=== PATIENT | male | born 1990 | race Caucasian/White ===

== ENCOUNTER → 2022-10-18 08:17 | Outpatient (BNVA) | payer BC, SELFPAY | PROVIDERS: PCP Internal Medicine; Visit Provider Psychiatry & Neurology Neurology | DX: Z13.89 Encounter for screening for other disorder (principal) ==

== ENCOUNTER → 2023-01-24 07:21 | Outpatient (BNVA) | payer BC, SELFPAY | PROVIDERS: PCP Internal Medicine; Visit Provider Psychiatry & Neurology Neurology | DX: R20.2 Paresthesia of skin (principal); M54.2 Cervicalgia ==

== ENCOUNTER 2023-07-31 07:37 | Outpatient (AMB) | payer BC, SELFPAY ==
--- NOTE | 2023-07-31 07:41 | MHC.OFFVIS ---
Intake Vital Signs 07/31/23 07:46 Weight 205 lb BP 110/86 Blood Pressure Location Lt brachial Position Sitting Pulse 79 Pulse Source Pulse Oximeter Pulse Oximetry (%) 97 Oxygen Delivery Method Room Air Intake Visit Reasons: 6m f/u dysesthesia - Confirmed Intake Note: F/u dysesthesia [employer] Required: No Allergies Seasonal Allergies Allergy (Intermediate, Verified 07/31/23 07:42) Sneezing Medication List - Last Reconciled 07/31/23 by Destiny Adhikari MD citalopram 10 mg PO DAILY cyclobenzaprine 5 mg PO .PRN elderberry fruit mg PO epinephrine IM DIRECTED lactobacillus combination no.9 (Adult 50 Plus Probiotic) PO DAILY magnesium oxide 400 mg PO BEDTIME omeprazole 20 mg PO QAM syringe with needle (BD Tuberculin Syringe) As directed HPI HPI Comments History of Present Illness Details 33y/o male comes for follow up of his parasthesias. He had right shoulder surgery in March 2023, Pec minor release, was found to have scar tissues around the brachial plexus. He still has shoulder blade pain but managaeble. He reports feeling better with cyclobenzaprine 5mg qhs as needed , citalopram 10mg qd . Stretching helps. He still has occasional tightness in left trapezius. He still goes to his chiropractor q 2-4 weeks . Headaches have resolved. [facility] Medical History Generalized headaches Concussion Anxiety Cervicalgia Surgical History H/O shoulder surgery History of tonsillectomy H/O hernia repair Family History Father Skin cancer Carotid sinus syndrome Degenerative disc disease at L5-S1 level Mother Hypothyroid Social History Alcohol intake: current Patient Tobacco Use Status: Former Tobacco user Tobacco use type: Smokeless Tobacco Use of substances other than those prescribed or required for medical reasons: No Physical Exam Vital Signs: Last Vital Signs Pulse 79 07/31/23 07:46 BP 110/86 07/31/23 07:46 Pulse Ox 97 07/31/23 07:46 Oxygen Delivery Method Room Air 07/31/23 07:46 Const General: cooperative, healthy appearing, comfortable and no acute distress Nutritional Appearance: average body habitus Orientation/consciousness: patient oriented x3 Eyes Pupils: Equal, round and reactive pupils present Neck Other: tightness Neuro General: patient oriented x3, gait normal, tone normal, moves all extremities and no focal motor deficits Cranial nerves: Yes Facial sensation intact/muscles of mastication intact, Yes Equal, round and reactive pupils present, Yes Bilaterally intact EOM present, Yes Nystagmus not present, Yes Normal facial strength present, Yes Midline tongue present, Yes Symmetric palate elevation present and Yes Ability to bilaterally elevate shoulders present Cognition (Neuro): normal cognition Gait exam (Neuro): Normal gait present Motor exam (neuro): 5/5 motor strength present throughout and Normal motor muscle tone present throughout Coordination: [id number] test normal and rapid alternating movements of the distal upper extremity normal Assessment & Plan Assessment & Plan (1) Cervicalgia: Code(s): M54.2 - Cervicalgia (2) Paresthesias: Comment: likely related scar tissue around his brachial plexus Code(s): R20.2 - Paresthesia of skin (3) Anxiety: Code(s): F41.9 - Anxiety disorder, unspecified Plan Continue cyclobenzaprine 5mg qhs ( patient is taking PRN now) Continue chiropractor adjustment Continue citalopram 10mg qd for anxiety, continue counseling sessions. Continue Magnesium 400mg qhs . Medications: New cyclobenzaprine takes as needed 5 mg PO .PRN 30 tabs 6RF Refilled citalopram 10 mg PO DAILY 30 tabs 6RF magnesium oxide 400 mg PO BEDTIME 30 tabs 6RF Coding Level of Care Code Est Pt Level 4 (65524) Diagnoses Cervicalgia M54.2 Paresthesias R20.2 Anxiety F41.9
[2023-07-31 07:46] VITALS: BP 110/86; PULSE 79; O2SAT 97
== END 2023-07-31 08:43 | disposition home or self-care (01) ==
PROVIDERS: Visit Provider Psychiatry & Neurology Neurology
DX: M54.2 Cervicalgia (principal); R20.2 Paresthesia of skin; F41.9 Anxiety disorder, unspecified
CPT/HCPCS: 99214

== ENCOUNTER → 2023-07-31 07:37 | Outpatient (BNVA) | payer BC, SELFPAY | PROVIDERS: Visit Provider Psychiatry & Neurology Neurology | DX: R20.2 Paresthesia of skin (principal); M54.2 Cervicalgia ==